=== PATIENT | male | born 1990 | race Two or more races ===

== ENCOUNTER 2024-10-25 16:12 | Emergency (ER) | payer SELFPAY ==
[~2024-10-25] VITALS: Ht 170.2 cm; Wt 79.8 kg
[2024-10-25 16:15] VITALS: BP 138/73
[2024-10-25 17:34] LABS: PLATELET COUNT (AUTO) 274 K/uL (152-348); RED BLOOD CELL COUNT(AUTO) 5.64 MIL/uL (4.06-5.63); RED CELL DISTRIBUTION WIDTH 15.0 % (12.1-16.2); WHITE BLOOD COUNT (AUTO) 7.1 K/uL (3.6-10.2)
[2024-10-25 17:41] LABS: CREATININE 0.9 mg/dL (0.6-1.3); SODIUM SERUM 141.0 mmol/L (136-145); UREA NITROGEN, BLOOD 7.0 mg/dL (7-18)
[2024-10-25] MEDS ORDERED: OMEP20TA20 PO (18:17)
[2024-10-25 18:28] VITALS: BP 121/70; O2SAT 98
== END 2024-10-25 18:28 | disposition home or self-care (01) ==
LOC: ER 16:16
DX: E08.8 Diabetes mellitus due to underlying condition with unspecified complications (principal); K21.9 Gastro-esophageal reflux disease without esophagitis; F12.90 Cannabis use, unspecified, uncomplicated; F17.200 Nicotine dependence, unspecified, uncomplicated; Z79.899 Other long term (current) drug therapy
CPT/HCPCS: 36415; 85025; A4606; A4663